=== PATIENT | female | born 1960 | race Caucasian/White ===

== ENCOUNTER → 2018-02-05 | Emergency (ER) | payer OTHER ==
[~2018-02-05] VITALS: Ht 170.2 cm; Wt 63.5 kg
== END | disposition home or self-care (01) ==
LOC: ER 14:55
DX: L27.2 Dermatitis due to ingested food (principal); K21.9 Gastro-esophageal reflux disease without esophagitis; T78.1XXA Other adverse food reactions, not elsewhere classified, initial encounter; X58.XXXA Exposure to other specified factors, initial encounter

== ENCOUNTER 2021-11-28 10:23 | Emergency (ER) | payer OTHER ==
[~2021-11-28] VITALS: Ht 154.9 cm; Wt 62.6 kg
[2021-11-28] MEDS ORDERED: MUPIROCIN1 G1 TOP (11:37)
[2021-11-28] MEDS ORDERED: HIBICLENS118 ML TOP (11:37)
== END 2021-11-28 11:47 | disposition home or self-care (01) ==
LOC: ER 10:23
DX: L03.115 Cellulitis of right lower limb (principal)